=== PATIENT | female | born 1950 ===

== ENCOUNTER 2017-07-11 08:56 | Outpatient (CLI) | payer OTHER ==
[~2017-07-11] VITALS: Ht 152.4 cm; Wt 95.3 kg
== END 2017-07-11 09:15 | disposition home or self-care (01) ==
LOC: OFIC 805 08:56
DX: H90.3 Sensorineural hearing loss, bilateral (principal); H61.23 Impacted cerumen, bilateral; H60.8X3 Other otitis externa, bilateral

== ENCOUNTER 2017-07-25 09:16 | Outpatient (CLI) | payer OTHER ==
[~2017-07-25] VITALS: Ht 152.4 cm; Wt 95.3 kg
== END 2017-07-25 09:30 | disposition home or self-care (01) ==
LOC: OFIC 805 09:16
DX: H93.11 Tinnitus, right ear (principal)

== ENCOUNTER 2017-07-25 14:12 | Outpatient (CLI) | payer OTHER | END 2017-07-25 17:00 | disposition home or self-care (01) | LOC: MRI 14:12 | DX: H93.11 Tinnitus, right ear (principal) | CPT/HCPCS: 70553 ==

== ENCOUNTER → 2017-07-25 | Outpatient (CLI) | payer OTHER | END | disposition home or self-care (01) | LOC: LAB 12:10 | DX: H93.11 Tinnitus, right ear (principal) ==

== ENCOUNTER → 2017-08-15 | Outpatient (CLI) | payer OTHER ==
[~2017-08-15] VITALS: Ht 152.4 cm; Wt 95.3 kg
== END | disposition home or self-care (01) ==
LOC: OFIC 805 08:40
DX: H93.11 Tinnitus, right ear (principal)